=== PATIENT | male | born 1950 | race Caucasian/White ===

== ENCOUNTER 2023-07-13 19:28 | Observation (INO) | payer OTHER, SELFPAY ==
[2023-07-13] VITALS (9 sets, daily range): BP systolic 135–149; BP diastolic 81–97; PULSE 83–111; RESP 15–25; TEMP 37.1–38.5; O2SAT 97–100; BMI 25.2
--- NOTE | ~2023-07-13 | CT_ITS ---
EXAMINATION: CT brain wo con DATE: 07/13/2023 20:23 INDICATION: Syncope . TECHNIQUE: Computed tomography (CT) of the head was performed without intravenous contrast. The mA wa s adjusted according to patient size. Iterative reconstruction technique was employed. The dose-lengt h product was 681.00 mGy-cm. COMPARISON: None. FINDINGS: No acute intracranial hemorrhage or extra-axial fluid collection. No hydrocephalus, mass, or herniation. No acute ischemic infarct. Unremarkable dural venous sinus attenuation. No acute osseous abnormality. The aerated spaces are clear. Moderate atrophy and chronic white matter change. Atherosclerotic intracranial calcification. Bilater al lens replacements. IMPRESSION: No acute intracranial process. Reviewed, dictated and finalized at location K.
--- NOTE | ~2023-07-13 | XR_ITS ---
EXAMINATION: XR chest 1V Exam Date/Time: 07/13/2023 20:20 CDT HISTORY: R/o sepsis Comparison: 12/19/2017. RESULT: Lines, tubes, and devices: None. Lungs and pleura: Clear. Cardiomediastinal silhouette: Stable. Other: No acute osseous or upper abdominal finding. IMPRESSION: No acute cardiopulmonary process. Reviewed, dictated and finalized at location K.
--- NOTE | ~2023-07-13 | CT_ITS ---
EXAMINATION: CT cervical spine wo con DATE: 07/13/2023 20:23 INDICATION: Syncope/ head injury TECHNIQUE: Computed tomography (CT) of the cervical spine was performed without intravenous contrast. Automated exposure control and iterative reconstruction technique were employed. The dose-length pro duct was 477.07 mGy-cm. COMPARISON: None. FINDINGS: Vertebral Body Alignment: Reversed lordosis centered at C5. Multilevel minimal listheses are likely o n a degenerative basis. Craniocervical and atlantoaxial alignment: Moderate degenerative change. Alignment intact. Osseous structures/fracture: No evidence of a lytic or blastic process in the visualized spine. No e vidence of acute fracture. Cervical soft tissues: The paraspinal soft tissues planes are maintained. Degenerative changes: Multilevel severe degenerative disc disease and facet arthropathy. Multilevel s evere bilateral neural foraminal narrowing secondary to degenerative changes. Severe central canal na rrowing at C5-6 secondary to degenerative disc, uncovertebral joint, and facet change. Enlarged bilat eral anterior and posterior cervical chain lymph nodes. IMPRESSION: No acute fracture or traumatic malalignment in the cervical spine. Anterior and posterior cervical chain lymphadenopathy. Reviewed, dictated and finalized at location K.
--- NOTE | 2023-07-13 19:43 | ECG_ITS ---
SEE SCANNED COPY FOR CONFIRMED REPORT MTDD
[2023-07-13 19:46] LABS: Glucose Point of Care 109 mg/dl (65-105)
[2023-07-13 20:00] LABS: Basophils Percent Auto 0.3 % (0.2-1.2); Eosinophils Absolute Auto 0.1 K/mm3 (0-0.3); Hematocrit 27.9 % (42.0-52.0); Hemoglobin 9.3 g/dL (14.0-18.0); Immature Granulocyte Absolute 0.03 K/mm3 (0.00-0.031); Immature Granulocyte Percent A 0.4 % (0-0.5); Lymphocytes Absolute Auto 0.42 K/mm3 (0.9-3.2); Lymphocytes Percent Auto 5.4 % (18.3-44.2); Mean Corpuscular HGB Conc 33.3 g/dl (32-36); Mean Corpuscular Hemoglobin 30.6 pg (26-34); Mean Corpuscular Volume 91.8 fl (80-100); Mean Platelet Volume 9.8 fl (7.4-10.4); Monocytes Absolute Auto 0.9 K/mm3 (0.1-0.6); Monocytes Percent Auto 11.8 % (2.6-8.5); Neutrophils Absolute Auto 6.3 K/mm3 (1.3-6.7); Neutrophils Percent Auto 81.1 % (45.5-73.1); Platelet Count Result 165 k/mm3 (150-375); Red Blood Count 3.04 M/mm3 (4.6-6.20); Red Cell Distribution Width 13.2 % (11.5-14.5); White Blood Count 7.8 K/mm3 (4.5-10.0)
[2023-07-13] MEDS: SODIUM CHLORIDE 0.9% IV 1,000 ML 999 ML IV CONT (20:02)
[2023-07-13] MEDS: ACETAMINOPHEN 325 MG TABLET 650 MG PO (20:04)
--- NOTE | 2023-07-13 20:04 | ED.SYNCOPE ---
HPI - Syncope General Chief Complaint: Syncope Stated Complaint: FOUND ON GROUND, DOES NOT RECALL WHAT HAPPENED Time Seen by Provider: 07/13/23 19:45 History of Present Illness HPI narrative: Patient is a 72-year-old male who presents to the emergency department this evening after being found outside of his office on the ground. Patient was laying down on the ground on gravel. Patient is unsure if he had a syncopal episode, he was supposed to be at a birthday constitution party and did not make it. Daughter who is present at bedside states that he was supposed to have left for the birthday constitution party around 2:30 in the afternoon, and fitted from his office showed him pulling up to the his office at 5:30 p.m. Patient had no reason to be at his office today given that it is Saturday. Patient states that he can not remember why he went to the office. Patient admits that he has had similar episode to this a few months ago, stating that he got up in the middle of the night to go use the restroom and once he got to the bathroom he passed. Patient did see his primary care physician 2 months ago after this episode and at that time he was taken off of his blood pressure medication due to low blood pressure/orthostatic hypertension. He is currently denying any symptoms and states that initially he did not want to be brought here by EMS because he felt. Patient currently denying any headaches, focal weakness, numbness and O2. He is alert and active, place, time and situation. No additional concerns or symptoms at this time. Related Data Allergies Allergy/AdvReac Type Severity Reaction Status Date / Time No Known Allergies Allergy Unverified 12/19/17 10:16 Review of Systems Review of Systems: All systems are reviewed and are negative unless stated otherwise in the HPI. [facility] Social History Social History Smoking status: Never smoker Alcohol intake: current Exam Narrative: General: Alert, awake, febrile, in no acute distress. HEENT: PERRL, no rhinorrhea, no post nasal drip, oropharynx clear. Neck: Trachea midline, no JVD, no lymphadenopathy. Cardiovascular: Regular rate and rhythm, no murmurs, rubs or gallops, no peripheral edema. Respiratory: Clear to auscultation bilaterally, no tachypnea, no wheezing, no rhonchi, no rubs, no respiratory distress. Abdomen: Soft, nontender, nondistended, no rebound, no guarding, no peritoneal signs. Musculoskeletal: No joint swelling or deformity, normal muscle tone. Skin: No rashes or petechia, no signs of infection. Psychiatric: Alert and oriented, normal behavior and judgment for situation. Neurological: Alert and oriented to person, place, and time. Follows all commands. 5/5 motor strength in the bilateral upper and lower extremity, sensation intact in bilateral upper and lower extremities, cranial nerves 2-12 grossly intact, speech is clear and fluent. Course Vital Signs Vital signs: Vital Signs Temperature 101.3 F H 07/13/23 19:25 Pulse Rate 107 H 07/13/23 19:25 Respiratory Rate 25 H 07/13/23 19:25 Blood Pressure 149/97 H 07/13/23 19:25 Pulse Oximetry 99 07/13/23 19:25 Oxygen Delivery Room Air 07/13/23 19:25 Temperature 98.7 F 07/13/23 21:20 Pulse Rate 103 H 07/13/23 21:02 Respiratory Rate 22 H 07/13/23 21:02 Blood Pressure 143/81 H 07/13/23 20:01 Pulse Oximetry 97 07/13/23 21:02 Oxygen Delivery Room Air 07/13/23 19:56 MDM - Syncope MDM Narrative Medical decision making narrative: The patient was evaluated by myself in the emergency department. History is obtained from patient who is an independent historian and physical exam was performed. External medical records were reviewed at this time. IV was established and pertinent tests were ordered. Vital signs were obtained and noted, patient heart rate noted to be 107, respiratory rate 25 and a temperature of 101.3?. Patient does meet SIRS criteria at t
[2023-07-13 20:07] LABS: Appearance Urine Clear (Clear); Bacteria Urine None Seen /hpf; Bilirubin Urine Negative (Negative); Blood Urine 1+ (Negative); Color Urine Yellow (Yellow); Glucose Urine UA Negative (Negative); Ketones Urine Negative (Negative); Leukocyte Esterase Ur 2+ LEU/UL (Negative); Nitrate Urine Negative (Negative); Protein Urine Trace mg/dL (Negative); Specific Grav Ur 1.018 (1.001-1.035); Squamous Epithelial Cell Urine None Seen /hpf (Few); Urobilinogen Urine 0.2 mg/dL (<2.0)
[2023-07-13 20:09] LABS: Creatine Kinase 109 U/L (55-170)
[2023-07-13 20:10] LABS: Alanine Aminotransferase 18 U/L (6-50); Albumin Level 3.8 g/dL (3.5-5.1); Alkaline Phosphatase 86 U/L (38-126); Anion Gap 5 mmol/L (4-12); Aspartate Amino Transferase 41 U/L (17-59); Bilirubin,Total 0.9 mg/dL (0.2-1.3); Blood Urea Nitrogen 21 mg/dL (9-20); Calcium 9.8 mg/dL (8.4-10.2); Carbon Dioxide 28 mmol/L (22-30); Chloride 99 mmol/L (98-107); Estimated CRCL calculation 50 ml/min; Estimated Glomerular Filt Rate 59; Glucose 124 mg/dL (65-110); Potassium 3.3 mmol/L (3.4-5.0); Sodium 132 mmol/L (137-145)
[2023-07-13 20:11] LABS: Lactic Acid Reflex 1.7 mmol/L (0.7-2.0)
[2023-07-13 20:13] LABS: Add Urine Microscopic? YES
[2023-07-13 20:36] LABS: Influenza A QL RT-PCR Negative (Negative); Influenza B QL RT-PCR Negative (Negative); RSV RNA, RT-PCR Negative (Negative); SARS-CoV-2 RNA PCR Negative (Negative)
[2023-07-13] MEDS: POTASSIUM CHLORIDE 20 MEQ ER TABLET PO (21:27)
--- NOTE | 2023-07-13 21:59 | PM.IMHP ---
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 Patient was expected at a birthday constitution party for family member at 02:30 in the afternoon. They found him at 05:30 in the afternoon in the parking lot of his business. Patient does not remember going to the business or having fallen or having loss of consciousness. The episode a couple months ago occurred when he got up to go to the bathroom and lost consciousness. At that time his significant other checked his temperature and it was 104?. He took some ibuprofen and Tylenol his fever resolved. His significant other is a nurse and they assumed his episode was due to orthostatic hypotension. He did not have a recurrence of his fever or syncopal episode. He saw his doctor a few weeks after that and was taken off of his blood pressure medications. He had a ?full blood panel? completed that was normal. He did not have any leukocytosis on his labs. He has reported a 25 lb unintentional weight loss since February. He associates the weight loss with around the time that he got his DUI. That is when he decided to quit drinking alcohol altogether it is assumed that some of it is due to stopping drinking. He has had decreased appetite since that time. He has also been having increasing urinary frequency since that time. He denies any dysuria, hematuria or sensation of incomplete bladder emptying. He is having increasing urinary frequency at night. He denies any changes in bowel habits, respiratory symptoms, cough, congestion, lightheadedness, palpitations, history of head trauma or seizures. Today when he arrived to the ER his temperature was a 101.3?. He was tachycardic and tachypneic. By the time he had arrived at the hospital patient is alert oriented x4. His glucose in the field was 126. He was diagnosed with iron deficiency anemia after his recent labs and was placed on iron supplementation. He quit taking the iron supplementation due to it causing dark stools and constipation. He does not recall his baseline hemoglobin level. He reports that he has chronic neuropathy in his feet due to his chemotherapy. This sometimes does affect his sense of balance. Patient reports he received chemotherapy for his B-cell lymphoma in 2011. He was followed at [facility] for about 10 years but was released from oncologist perspective a couple of years ago. Review of Systems Review of Systems: 12 systems were reviewed with pertinent positives and negatives per HPI. Except as documented in the HPI, all other systems were reviewed and are negative. [facility] Past Medical History Medical History (Updated 07/13/23 @ 22:29 by Jacklyn Coats DO) Essential hypertension History of squamous cell carcinoma Hyperlipidemia Iron deficiency anemia Large B-cell lymphoma (~2011) Lung mass Reportedly due to fungal infection Surgical History Surgical History (Updated 07/13/23 @ 22:24 by Jacklyn Coats DO) History of bilateral knee replacement History of colon resection History of lumbar surgery History of nasal polypectomy (2011) Large B-cell lymphoma Family History Family History Father Heart disease Hypertension Social History Social History (Updated 07/14/23 @ 00:07 by Jacklyn Coats DO) Social History: The patient lives with his significant other of 27 years. He raised 2 daughters. 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 He is a lifelong nonsmoker. He used to drink at least 2-3 alcoholic beverages a day but quit drinking altogether March 19, 2023 after a received a DUI. He denies any signific
--- NOTE | 2023-07-13 22:44 | ADMGEN ---
This patient, Yogi Frazier, was admitted to Medical Room 346-01. Patient/family oriented to hospital policies and general routines including ID bracelet, bed and alarms, visiting hours, pain management, procedures, bathroom and other care routines, personal items, smoking policy, room service/diet, and visiting hours. Information on how to activate the Rapid Response Team has been discussed. Patient/Family are encouraged to report perceived risks to care and to ask questions if they do not understand what they are told or what they should do.
[2023-07-13] MEDS: SODIUM CHLORIDE 0.9% IV 1,000 ML 100 ML IV CONT (23:01)
[2023-07-13 23:03] LABS: Procalcitonin 0.1 ng/mL
[2023-07-14 00:29] VITALS: BP 110/65; PULSE 83; RESP 20; TEMP 36.3; O2SAT 100
[2023-07-14 00:33] VITALS: BP 110/65; PULSE 83; RESP 20; TEMP 36.3; O2SAT 100
[2023-07-14 06:00] VITALS: BP 125/63; PULSE 84; RESP 20; TEMP 36.3; O2SAT 100
[2023-07-14 06:05] LABS: Hematocrit 26.5 % (42.0-52.0); Hemoglobin 8.6 g/dL (14.0-18.0); Mean Corpuscular HGB Conc 32.5 g/dl (32-36); Mean Corpuscular Hemoglobin 30.3 pg (26-34); Mean Corpuscular Volume 93.3 fl (80-100); Platelet Count Result 137 k/mm3 (150-375); Red Blood Count 2.84 M/mm3 (4.6-6.20); Red Cell Distribution Width 13.2 % (11.5-14.5); White Blood Count 5.5 K/mm3 (4.5-10.0)
[2023-07-14 06:36] LABS: Anion Gap 2 mmol/L (4-12); Blood Urea Nitrogen 16 mg/dL (9-20); Calcium 8.9 mg/dL (8.4-10.2); Carbon Dioxide 29 mmol/L (22-30); Chloride 105 mmol/L (98-107); Estimated CRCL calculation 59 ml/min; Estimated Glomerular Filt Rate > 60; Glucose 98 mg/dL (65-110); Potassium 3.1 mmol/L (3.4-5.0); Sodium 136 mmol/L (137-145)
[2023-07-14] MEDS: SODIUM CHLORIDE 0.9% IV 1,000 ML 100 ML IV CONT (08:52)
[2023-07-14] MEDS: POTASSIUM CHLORIDE 20 MEQ ER TABLET 40 MEQ PO (08:52)
[2023-07-14] MEDS: POTASSIUM CHLORIDE INJ 40 MEQ in SODIUM CHLORIDE 0.9% IV 500 ML 130 MEQ IVPB (08:52)
--- NOTE | 2023-07-14 09:49 | PM.DS ---
DS: Admitting Diagnosis Discharge Date 07/14/2023 Admitting Diagnosis sepsis, abnormal Urinalysis, syncope, large B cell lymphoma history, cervical lymphadenopathy DS: Discharge Diagnosis Discharge Diagnosis (1) Sepsis: Qualifiers: Sepsis acute organ dysfunction status: without acute organ dysfunction Sepsis type: sepsis due to unspecified organism Qualified Code(s): A41.9 - Sepsis, unspecified organism Code(s): A41.9 - Sepsis, unspecified organism Status: Acute (2) Abnormal urinalysis: Code(s): R82.90 - Unspecified abnormal findings in urine Status: Acute (3) Syncope: Qualifiers: Syncope type: unspecified Qualified Code(s): R55 - Syncope and collapse Code(s): R55 - Syncope and collapse Status: Acute (4) Large B-cell lymphoma: Onset Date: ~2011 Code(s): C85.10 - Unspecified B-cell lymphoma, unspecified site Status: Acute (5) Cervical lymphadenopathy: Code(s): R59.0 - Localized enlarged lymph nodes Status: Acute DS: Summary Hospital Course Hospital Course: This is a 72 year old male patient admitted to the hospital after presumed syncope event in which patient was 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 This is the second time this type of event has happened. History of previously treated lymphoma. UA suspicious for UTI and fever present qualified for sepsis. Today patient feels well, return to baseline status. He will get second dose of Rocephin and be discharged on cefdinir with urine and blood cultures pending. Status at Discharge Cognitive/behavioral status at discharge: awake, alert, oriented and pleasant Functional status at discharge: independent ambulation Overall status at discharge: patient is back to baseline Time Spent with Patient Time attestation: Total time spent providing and/or coordinating discharge services: 40 minutes Time spent: Greater than 30 minutes Exam Narrative: Weight 84 kg BMI 26.6 Const: Other: Well-developed, well-nourished, appears stated age HENMT: Other: Head is normocephalic atraumatic, mucous membranes are tacky, no oral pharyngeal erythema, crowded posterior oropharynx, multiple missing teeth and multiple dental caries Eyes: Other: Right pupil is reactive with evidence of lens replacement, 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, mild conjunctival pallor Neck: Other: Palpable lymph nodes bilaterally nontender, no JVD, normal range of motion Resp: Other: Clear to auscultation bilaterally, no increased work of breathing Cardio: Other: Regular rate, regular rhythm, 2+ bilateral radial pedal pulses GI: Other: Soft, non-tender, non-distended Skin: Other: No pallor, non jaundice Neuro: Other: Alert oriented x4, speech is clear and fluent, no facial asymmetry, no localizing neurologic deficits noted during the course of conversation, gait not evaluated Extrem: Other: No clubbing, cyanosis or pitting edema, scar to the right anterior marie were prior skin cancer was resected Psych: Other: Appropriate mood and affect, pleasant and cooperative, judgment and insight intact DS: Data Data Completed and Pending Completed studies during hospitalization: CT head, CT cervical spine and CXR Labs on day of discharge: Labs from last 24 hours 07/14/23 07/13/23 07/13/23 05:45 22:07 19:52 WBC 5.5 RBC 2.84 L Hgb 8.6 L Hct 26.5 L MCV 93.3 MCH 30.3 MCHC 32.5 RDW 13.2 Plt Count 137 L MPV 10.0 Immature Gran % (Auto) Neut % (Auto) Lymph % (Auto) [place] % (Auto) Eos % (Auto) Baso % (Auto) Lymph # (Auto) [place] # (Auto) Eos # (Auto) Baso # (Auto) Abs Immat Gran (auto) Absolute Neuts (auto) Absolute Nucleated RBC Nucleated RBC % Sodium 136 L Potassium 3.1 L Chloride 105 C
[2023-07-14 14:00] VITALS: BP 114/48; PULSE 61; RESP 16; TEMP 36.5; O2SAT 95
== END 2023-07-14 15:10 | disposition home or self-care (01) ==
LOC: ANHED 21:54 → ANH3MED 07-14 12:00
PROVIDERS: Admitting Provider Internal Medicine; Emergency Provider Emergency Medicine; Referring Provider Emergency Medicine; Visit Provider Internal Medicine
DX: A41.9 Sepsis, unspecified organism (principal); R82.90 Unspecified abnormal findings in urine; R55 Syncope and collapse; R59.0 Localized enlarged lymph nodes; I10 Essential (primary) hypertension; G62.0 Drug-induced polyneuropathy; D50.9 Iron deficiency anemia, unspecified; Z85.72 Personal history of non-Hodgkin lymphomas; Z92.21 Personal history of antineoplastic chemotherapy; Z90.49 Acquired absence of other specified parts of digestive tract; Z20.822 Contact with and (suspected) exposure to COVID-19
CPT/HCPCS: 36415; 70450; 71045; 72125; 80048; 80053; 81001; 82550; 82948; 83605; 84145; 85025; 85027; 87040; 87086; 87637; 93005; 96361; 96365; 96375; 96376; 99285; A9270; G0378; J0696; J3480; J7030; J7040

== ENCOUNTER 2023-08-04 18:39 | Inpatient (IN) | payer OTHER, SELFPAY ==
[2023-08-04] VITALS (7 sets, daily range): BP systolic 129–143; BP diastolic 72–84; PULSE 98–118; RESP 14–20; TEMP 36.3–37.9; O2SAT 96–100
--- NOTE | ~2023-08-04 | US_ITS ---
US renal BI Ordering provider: Juliana Patricio APRN History: . ADALBERTO/lymphoma . Comparison: None. Technique: Ultrasound bilateral kidneys. Findings: RIGHT KIDNEY: Measures 9.9x 5.4x 5.1 cm in length which is normal in size. No renal cysts. No renal m ass or visualized echogenic stones. Otherwise, normal echotexture and contour. Mild hydronephrosis. N ormal renal cortical thickness. LEFT KIDNEY: Measures 11.1x 5.7x 4.8 cm in length which is normal in size. No renal cysts. No renal m ass. echogenic stones are seen measuring 0.7 x 0.2 x 0.6 cm. Otherwise, normal echotexture and contou r. Mild hydronephrosis. Normal renal cortical thickness. Hypoechoic tubular structure is not connecte d to the pelvic calyceal system which may be an enlarged lymph node. BLADDER: Normal. Ureteral jets were not seen bilaterally. IMPRESSION: Left kidney stone. Bilateral mild hydronephrotic changes. Highly suggestive lymphadenopathy seen adjacent to the left kidney. Reviewed, dictated and finalized at location A.
--- NOTE | ~2023-08-04 | XR_ITS ---
Clinical Indication: Weakness PA and lateral views of the chest: Comparison: 07/13/2023 Findings: The lungs are clear, without evidence of focal consolidation or pleural effusion. Cardiome diastinal silhouette is within normal limits. Bones and soft tissues are unremarkable. Impression: Normal chest. Reviewed, dictated and finalized at location . Impression: Normal chest.
--- NOTE | 2023-08-04 18:42 | ECG_ITS ---
[facility] [address] Test Date: 2023-08-04 Pat Name: Yogi Frazier Department: Room: Gender: Health Science Writer: : 1950 Requested By: Angel Leavitt Order Number: [id number] Ximena MD: Jaden Ortiz M.D. Measurements Intervals [place] Rate: 119 P: 66 [place]: 162 QRS: -36 QRSD: 87 T: 64 QT: 324 QTc: 457 Interpretive Statements SINUS TACHYCARDIA SUSPECT PREVIOUS INFERIOR [place] NONSPECIFIC T-WAVE ABNORMALITY LOW QRS VOLTAGE IN EXTREMITY LEADS [QRS DEFLECTION < 0.5 mV IN LIMB LEADS] ABNORMAL ECG No previous ECG available for comparison Electronically Signed On 08-05-2023 08:08:13 CDT by Jaden Ortiz M.D.
[2023-08-04 19:01] LABS: Basophils Percent Auto 0.3 % (0.2-1.2); Eosinophils Percent Auto 0.3 % (0-4.4); Hematocrit 25.3 % (42.0-52.0); Hemoglobin 8.2 g/dL (14.0-18.0); Immature Granulocyte Absolute 0.03 K/mm3 (0.00-0.031); Immature Granulocyte Percent A 0.4 % (0-0.5); Lymphocytes Absolute Auto 0.27 K/mm3 (0.9-3.2); Lymphocytes Percent Auto 3.8 % (18.3-44.2); Mean Corpuscular HGB Conc 32.4 g/dl (32-36); Mean Corpuscular Hemoglobin 29.6 pg (26-34); Mean Corpuscular Volume 91.3 fl (80-100); Mean Platelet Volume 9.8 fl (7.4-10.4); Monocytes Absolute Auto 0.7 K/mm3 (0.1-0.6); Monocytes Percent Auto 10.3 % (2.6-8.5); Neutrophils Absolute Auto 6.1 K/mm3 (1.3-6.7); Neutrophils Percent Auto 84.9 % (45.5-73.1); Platelet Count Result 179 k/mm3 (150-375); Red Blood Count 2.77 M/mm3 (4.6-6.20); White Blood Count 7.2 K/mm3 (4.5-10.0)
[2023-08-04 19:24] LABS: Alanine Aminotransferase 19 U/L (6-50); Albumin Level 3.2 g/dL (3.5-5.1); Alkaline Phosphatase 94 U/L (38-126); Anion Gap 5 mmol/L (4-12); Aspartate Amino Transferase 46 U/L (17-59); Blood Urea Nitrogen 26 mg/dL (9-20); Calcium 10.8 mg/dL (8.4-10.2); Carbon Dioxide 32 mmol/L (22-30); Chloride 95 mmol/L (98-107); Estimated CRCL calculation 30 ml/min; Estimated Glomerular Filt Rate 33; Glucose 118 mg/dL (65-110); Potassium 4.1 mmol/L (3.4-5.0); Sodium 132 mmol/L (137-145)
--- NOTE | 2023-08-04 19:36 | ED.WEAKNESS ---
HPI - Weakness General Chief complaint: Weakness Stated complaint: INCREASING WEAKNESS Time Seen by Provider: 08/04/23 18:57 History of Present Illness HPI Narrative: patient has not been feeling well for the last month, has been feeling weak and tired, was seen here recently where he was found have reactive lymph nodes, he has a history of lymphoma in remission, and is scheduled for biopsy and oncology next week. He was recently diagnosed with urinary tract infection, and is still on antibiotics for this. Has not been eating or drinking well per his at home Related Data Allergies Allergy/AdvReac Type Severity Reaction Status Date / Time No Known Allergies Allergy Unverified 12/19/17 10:16 Review of Systems Review of Systems: All systems reviewed & are unremarkable except as noted in HPI and below PMFSH Past Medical History Medical History (Updated 08/04/23 @ 22:42 by Flavia Zaragoza MD) Essential hypertension History of squamous cell carcinoma Hyperlipidemia Iron deficiency anemia Large B-cell lymphoma (~2011) Lung mass Reportedly due to fungal infection Surgical History Surgical History (Updated 07/13/23 @ 22:24 by Jacklyn Coats DO) History of bilateral knee replacement History of colon resection History of lumbar surgery History of nasal polypectomy (2011) Large B-cell lymphoma Family History Family History Father Heart disease Hypertension Social History Social History (Updated 07/14/23 @ 00:07 by Jacklyn Coats DO) Social History: The patient lives with his significant other of 27 years. He raised 2 daughters. 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 He is a lifelong nonsmoker. He used to drink at least 2-3 alcoholic beverages a day but quit drinking altogether March 19, 2023 after a received a DUI. He denies any significant illicit substance use history. Code status: DNR/DNI per EMR Healthcare power of senior trial attorney: Bisi Lua and Lyudmila Goncalves Smoking status: Never smoker Alcohol intake: current Substance use: never Substance use type: does not use Do You Feel Safe in your Home?: Yes Lack of Transportation: No Lack of Food: Never True Current Housing: I Have Housing Concerned About Future Housing: No Difficulty Paying Gas/Electric Bills: No Difficulty Paying for Meds: No Currently Unemployed: No Education: Bachelor's Degree Difficulty w/ Childcare or Family Care: No Spiritual care concerns: No Exam Narrative: EXAMINATION OF ORGAN SYSTEMS/BODY AREAS: Constitutional: Vital signs per nursing GENERAL: appears tired HEAD: Normal with no signs of head trauma. EYES: EOMI, conjunctiva normal ENT: diminished hearing, dry mucous membranes LUNGS: Nonlabored breathing. HEART: [Regular rate and rhythm] ABD: [Soft], [nontender to palpation] EXT: Normal range of motion SKIN: [No rashes or lesions.] NEURO: [Alert and oriented x 3. No gross focal sensory or strength deficits.] PSYCH: Normal affect Course Vital Signs Vital signs: Vital Signs Temperature 100.3 F H 08/04/23 18:39 Pulse Rate 118 H 08/04/23 18:39 Respiratory Rate 20 08/04/23 18:39 Blood Pressure 133/83 08/04/23 18:39 Pulse Oximetry 97 08/04/23 18:39 Oxygen Delivery Room Air 08/04/23 18:39 Temperature 99.7 F H 08/04/23 20:11 Pulse Rate 102 H 08/04/23 22:00 Respiratory Rate 14 08/04/23 22:00 Blood Pressure 139/82 08/04/23 20:48 Pulse Oximetry 100 08/04/23 22:00 Oxygen Delivery Room Air 08/04/23 22:00 MDM - Weakness MDM Narrative Medical decision making narrative: 1) Differential diagnosis: dehydration, electrolyte abnormality, infection, malignancy 2) Comorbidities: history of lymphoma 3) External notes reviewed: admission records 4) History sources independently obtained from: patient's 5) Discussion of manag
[2023-08-04 19:37] LABS: Appearance Urine Cloudy (Clear); Bacteria Urine None Seen /hpf; Bilirubin Urine Negative (Negative); Blood Urine Negative (Negative); Color Urine Yellow (Yellow); Glucose Urine UA Negative (Negative); Ketones Urine Negative (Negative); Leukocyte Esterase Ur 1+ LEU/UL (Negative); Nitrate Urine Negative (Negative); Protein Urine Trace mg/dL (Negative); RBC Urine 0-2 /hpf (0-2); Specific Grav Ur 1.011 (1.001-1.035); Squamous Epithelial Cell Urine None Seen /hpf (Few); pH Urine 8.5 (5.0-9.0)
[2023-08-04] MEDS: ACETAMINOPHEN 500 MG TABLET 1000 MG PO (19:41)
[2023-08-04 19:43] LABS: Lactic Acid Reflex 1.7 mmol/L (0.7-2.0)
[2023-08-04] MEDS: LACTATED RINGERS 1,000 ML 999 ML IV CONT ×2 (19:43)
[2023-08-04 19:48] LABS: Add Urine Microscopic? YES
[2023-08-04 20:11] LABS: Influenza A QL RT-PCR Negative (Negative); Influenza B QL RT-PCR Negative (Negative); RSV RNA, RT-PCR Negative (Negative); SARS-CoV-2 RNA PCR Negative (Negative)
--- NOTE | 2023-08-04 21:56 | ADMGEN ---
This patient, Yogi Frazier, was admitted to [facility] Surg Room 329-01. Patient/family oriented to hospital policies and general routines including ID bracelet, bed and alarms, visiting hours, pain management, procedures, bathroom and other care routines, personal items, smoking policy, room service/diet, and visiting hours. Information on how to activate the Rapid Response Team has been discussed. Patient/Family are encouraged to report perceived risks to care and to ask questions if they do not understand what they are told or what they should do.
[2023-08-04] MEDS: LACTATED RINGERS 1,000 ML 125 ML IV CONT (22:05)
--- NOTE | 2023-08-04 23:29 | PM.IMHP ---
H&P: HPI History of Present Illness Date/Time: 08/04/23 23:29 Chief Complaint: Patient came to the ED for evaluation complaining of feeling and tired Narrative: Our patient is a very pleasant 72 years old white male with history of lymphoma in remission. He is scheduled for biopsy and oncology visit next week. He has recently been diagnosed with urinary tract infection and still on oral antibiotics. He is feeling weak tired and fatigued and not eating or drinking well for the last few days as per the . Patient was brought to the ER for evaluation, workup was done which showed persistent UTI and dehydration. He was started on IV hydration and IV antibiotics and being admitted for medical management, close monitoring, and further workup. Review of Systems Review of Systems: 14 systems were reviewed with pertinent positives and negatives per HPI. Except as documented in the HPI/progress notes, all other systems were reviewed and are negative. All systems reviewed & are unremarkable except as noted in HPI and below PMFSH Past Medical History Medical History Essential hypertension History of squamous cell carcinoma Hyperlipidemia Iron deficiency anemia Large B-cell lymphoma (~2011) Lung mass Reportedly due to fungal infection Surgical History Surgical History History of bilateral knee replacement History of colon resection History of lumbar surgery History of nasal polypectomy (2011) Large B-cell lymphoma Family History Family History Father Heart disease Hypertension Social History Social History Social History: The patient lives with his significant other of 27 years. He raised 2 daughters. 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 He is a lifelong nonsmoker. He used to drink at least 2-3 alcoholic beverages a day but quit drinking altogether March 19, 2023 after a received a DUI. He denies any significant illicit substance use history. Code status: DNR/DNI per EMR Healthcare power of area development consultant: Bisi Lua and Lyudmila Goncalves Smoking status: Never smoker Alcohol intake: current Substance use: never Substance use type: does not use Do You Feel Safe in your Home?: Yes Lack of Transportation: No Lack of Food: Never True Current Housing: I Have Housing Concerned About Future Housing: No Difficulty Paying Gas/Electric Bills: No Difficulty Paying for Meds: No Currently Unemployed: No Education: Bachelor's Degree Difficulty w/ Childcare or Family Care: No Spiritual care concerns: No Meds Home Medications and Allergies Home Medications Medication Instructions Recorded Confirmed Type cefdinir 300 mg capsule 300 mg PO Q12H #10 caps 07/14/23 08/04/23 Rx Allergies Allergy/AdvReac Type Severity Reaction Status Date / Time No Known Allergies Allergy Unverified 12/19/17 10:16 Vital Signs Vital Signs - 24 hr 08/04/23 18:39 08/04/23 18:45 08/04/23 19:47 Temperature 37.9 C H Pulse Rate 118 H 104 H Respiratory Rate 20 20 Blood Pressure 133/83 143/84 H Pulse Oximetry 97 98 99 Oxygen Delivery Room Air Room Air 08/04/23 20:48 08/04/23 20:11 08/04/23 22:00 Temperature 37.6 C H Pulse Rate 102 H 102 H Respiratory Rate 14 14 Blood Pressure 139/82 Pulse Oximetry 100 100 Oxygen Delivery Room Air Exam Narrative: PHYSICAL EXAMINATION: Vital signs: Please see the chart General physical exam: Patient lying in bed, pleasant and cooperative with exam, appears to be weak tired and fatigued Head/eyes: Atraumatic, EOMI, PERRLA ENT: +dry mucous membranes, nasal passages clear Neck: Supple, full range of motion, trachea midline CVS: S1 + S2, regular rate and rhythm, no murmurs Respiratory: Bila
[2023-08-05 02:24] VITALS: BMI 25.1
[2023-08-05 04:45] VITALS: BP 133/74; PULSE 90; RESP 16; TEMP 36.4; O2SAT 96
[2023-08-05] MEDS: LACTATED RINGERS 1,000 ML 125 ML IV CONT (05:54)
[2023-08-05 06:20] LABS: Basophils Percent Auto 0.3 % (0.2-1.2); Eosinophils Absolute Auto 0.1 K/mm3 (0-0.3); Hematocrit 25.5 % (42.0-52.0); Hemoglobin 8.1 g/dL (14.0-18.0); Immature Granulocyte Absolute 0.02 K/mm3 (0.00-0.031); Immature Granulocyte Percent A 0.3 % (0-0.5); Lymphocytes Absolute Auto 0.34 K/mm3 (0.9-3.2); Lymphocytes Percent Auto 5.8 % (18.3-44.2); Mean Corpuscular HGB Conc 31.8 g/dl (32-36); Mean Corpuscular Hemoglobin 29.6 pg (26-34); Mean Corpuscular Volume 93.1 fl (80-100); Mean Platelet Volume 9.5 fl (7.4-10.4); Monocytes Absolute Auto 0.6 K/mm3 (0.1-0.6); Monocytes Percent Auto 10.7 % (2.6-8.5); Neutrophils Absolute Auto 4.8 K/mm3 (1.3-6.7); Neutrophils Percent Auto 81.9 % (45.5-73.1); Platelet Count Result 141 k/mm3 (150-375); Red Blood Count 2.74 M/mm3 (4.6-6.20); White Blood Count 5.9 K/mm3 (4.5-10.0)
[2023-08-05 06:35] LABS: Anion Gap 1 mmol/L (4-12); Blood Urea Nitrogen 22 mg/dL (9-20); Calcium 10.2 mg/dL (8.4-10.2); Carbon Dioxide 34 mmol/L (22-30); Chloride 98 mmol/L (98-107); Estimated CRCL calculation 30 ml/min; Estimated Glomerular Filt Rate 33; Glucose 100 mg/dL (65-110); Phosphorus 3.8 mg/dL (2.5-4.5); Potassium 3.4 mmol/L (3.4-5.0); Sodium 133 mmol/L (137-145)
[2023-08-05 13:16] VITALS: BMI 25.1
--- NOTE | 2023-08-05 13:53 | PC.NURSE ---
Patient was notified by patient he wanted to leave despite US report not being read. Hospitalist was notified
--- NOTE | 2023-08-05 14:40 | PM.DS ---
DS: Admitting Diagnosis Discharge Date 08/05/23 Admitting Diagnosis Acute kidney injury/generalized weakness DS: Discharge Diagnosis Discharge Diagnosis (1) ADALBERTO (acute kidney injury): Code(s): N17.9 - Acute kidney failure, unspecified Status: Acute (2) Dehydration: Code(s): E86.0 - Dehydration Status: Acute (3) Large B-cell lymphoma: Onset Date: ~2011 Code(s): C85.10 - Unspecified B-cell lymphoma, unspecified site Status: Acute (4) Urinary tract infection: Code(s): N39.0 - Urinary tract infection, site not specified Status: Acute (5) Failure of outpatient treatment: Code(s): Z78.9 - Other specified health status Status: Acute (6) Lymphoma in remission: Code(s): C85.90 - Non-Hodgkin lymphoma, unspecified, unspecified site Status: Acute Plan Admit patient to medical unit under full inpatient status Urinalysis was done which shows finding consistent with UTI Patient has been on oral antibiotics in the form of oral cefdinir for UTI which have not been effective Follow-up on urine and blood cultures Patient started on IV Rocephin in the ER which we will continue on the floor Patient also has findings consistent with ADALBERTO due to dehydration with bump in creatinine from 1 to 2 Patient was given 2 L of IV hydration in the ER Patient started on IV hydration at 125 cc/hour in the ER which I would cut down to 100 cc/hour Strict input and output monitoring Monitor renal functions closely Strict input and output monitoring Encourage ambulation with assistance Consider PT/OT evaluation as warranted DC planning once patient is stable and back to baseline Patient has established follow-up with Oncology as an outpatient for his lymphoma in remission ? Patient seen and examined at bedside ? Collaborated with patient's nurse at the bedside in detail and addressed all concerns ? Labs, electrolytes, radiology, investigations and test results reviewed ? Spoke with ED provider and discussed patient's presentation, ED treatment, and workup in thorough detail ? ED/Consult/Nursing/Ancilliary notes on the chart reviewed and appreciated ? Spoke with patient/family at the bedside and answered all the questions that they had I have utilized all available immediate resources to obtain, update or review the patient's current medications (including all prescriptions, [id number] products, herbals, cannabis/cannabidiol products, and vitamin/mineral/dietary (nutritional) supplements. I confirm that the patient's Advanced Care Plan is present, code status is documented, or surrogate decision maker is listed in the patient's medical record. Continue with home meds. Monitor patient closely while admitted. Patient needs close follow up with PCP/specialists as an outpatient to address chronic medical issues. Repeat labs in a.m. Electrolyte replacement as per protocol. Patient will be monitored very closely on the floor. Further recommendations as per the hospital course. Patient's medical management will be taken over by our hospitalist team in a.m. DS: Summary Hospital Course Reason for hospitalization: Acute kidney injury/generalized weakness Hospital Course: Admission: Medical chart Narrative: Our patient is a very pleasant 72 years old white male with history of lymphoma in remission. He is scheduled for biopsy and oncology visit next week. He has recently been diagnosed with urinary tract infection and still on oral antibiotics. He is feeling weak tired and fatigued and not eating or drinking well for the last few days as per the . Patient was brought to the ER for evaluation, workup was done which showed persistent UTI and dehydration. He was started on IV hydration and IV antibiotics and being admitted for medical management, close monitoring, and further workup. 08/04: Assumed care/DISCHARGED PATIENT LEFT AMA Patient was seen at prior to leaving AM reported
== END 2023-08-05 13:30 | disposition left against medical advice (07) | DRG 683 ==
LOC: ANHED 20:06 → ANH3MEDSUR 21:22
PROVIDERS: Emergency Medicine; Admitting Provider Family Medicine; Emergency Provider Emergency Medicine; Visit Provider Nurse Practitioner Family
DX: N17.9 Acute kidney failure, unspecified (principal); N39.0 Urinary tract infection, site not specified; I10 Essential (primary) hypertension; D50.9 Iron deficiency anemia, unspecified; E78.5 Hyperlipidemia, unspecified; Z96.653 Presence of artificial knee joint, bilateral; Z20.822 Contact with and (suspected) exposure to COVID-19; Z85.72 Personal history of non-Hodgkin lymphomas
CPT/HCPCS: 36415; 71046; 76775; 80048; 80053; 81001; 83605; 83735; 84100; 85025; 87040; 87086; 87637; 93005; 96360; 99285; A9270; J0696; J7120